=== PATIENT | female | born 1990 | race Caucasian/White ===

== ENCOUNTER 2017-11-29 14:21 | Emergency (ER) | payer OTHER ==
[~2017-11-29] VITALS: Ht 167 cm; Wt 69.0 kg
[2017-11-29 15:11] LABS: URINE BILIRUBIN NEGATIVE (Negative); URINE BLOOD TRACE (Negative); URINE CLARITY CLEAR; URINE COLOR YELLOW; URINE GLUCOSE-RANDOM* NEGATIVE (Negative); URINE KETONES NEGATIVE (Negative); URINE LEUKOCYTES-REFLEX NEGATIVE (Negative); URINE NITRITE-REFLEX NEGATIVE (Negative); URINE PROTEIN (DIPSTICK) NEGATIVE (Negative); URINE SPECIFIC GRAVITY 1.025 (1.005-1.035); URINE UROBILINOGEN 0.2 E.U./dl (0.2-1.0)
[2017-11-29] MEDS ORDERED: DOXYCYCLINE 10100 MG PO (16:35)
[2017-11-29] MEDS ORDERED: FLAGYL500 MG PO (16:35)
[2017-11-29 17:27] VITALS: BP 116/69
[2017-11-30 15:06] LABS: NEISSERIA GONORRHEA-PCR Negative (Negative)
== END 2017-11-29 17:10 | disposition home or self-care (01) ==
LOC: ER 14:21
PROVIDERS: Emergency Medicine; Physician Assistant
DX: N76.0 Acute vaginitis (principal); N73.9 Female pelvic inflammatory disease, unspecified